=== PATIENT | female | born 1950 | race Caucasian/White ===

== ENCOUNTER 2021-06-10 12:23 | Emergency (ER) | payer MEDICARE, OTHER ==
[2021-06-10] MEDS ORDERED: KEFLEX500 MG PO (12:52)
[2021-06-10] MEDS ORDERED: STROMECTOL3 MG PO (12:52)
[2021-06-10] MEDS ORDERED: NO HOME MEDS (12:54)
[2021-06-10 13:23] VITALS: BP 125/61
== END 2021-06-10 13:23 | disposition home or self-care (01) ==
LOC: ED 12:23
DX: B86 Scabies (principal); L01.00 Impetigo, unspecified; F17.210 Nicotine dependence, cigarettes, uncomplicated; Z59.00 Homelessness unspecified

== ENCOUNTER 2021-08-10 03:16 | Emergency (ER) | payer OTHER, MEDICARE ==
[~2021-08-10 03:16] MED LIST: KEFLEX500 MG PO; NO HOME MEDS; STROMECTOL3 MG PO
== END 2021-08-10 07:00 | disposition home or self-care (01) | DRG 563 ==
LOC: ED 03:40
DX: S39.012A Strain of muscle, fascia and tendon of lower back, initial encounter (principal); S29.012A Strain of muscle and tendon of back wall of thorax, initial encounter; F17.200 Nicotine dependence, unspecified, uncomplicated; V89.2XXA Person injured in unspecified motor-vehicle accident, traffic, initial encounter

== ENCOUNTER 2021-08-19 21:23 | Emergency (ER) | payer MEDICARE ==
[~2021-08-19] VITALS: Ht 162.6 cm; Wt 65.0 kg
[2021-08-19 22:13] LABS: HEMATOCRIT 43.6 % (37.0-47.0); HEMOGLOBIN 14.8 g/dl (12.0-16.0); IMMATURE GRANULOCYTES 0.2 % (0.0-5.0); MEAN CELL VOLUME 94.6 fL CALC (80.0-100.0); MEAN CORPUSCULAR HGB 32.1 pG CALC (26.0-32.0); MEAN CORPUSCULAR HGB CONC 33.9 g/dL CAL (32.0-36.0); NEUT# 5.58 thou/uL (2.00-7.15); RED BLOOD COUNT 4.61 mill/uL (4.20-5.60)
[2021-08-19 22:32] LABS: ALBUMIN 3.6 g/dL (3.2-5.0); ALKALINE PHOSPHATASE 122 u/l (38-126); ANION GAP 9 (6-22 (CALC)); BILIRUBIN, TOTAL 0.4 mg/dL (0.0-1.4); BUN 14 mg/dL (8-23); BUN/CREATININE RATIO 14 (12-20 (CALC)); CARBON DIOXIDE 29 mmol/l (22-30); CHLORIDE 105 mmol/l (95-108); ETHYL ALCOHOL 0 mg/dl (0-30); GFR 55 ML/MIN (>=60 (CALC)); GFR FOR AFR.AMER. > 60 ML/MIN (>=60 (CALC)); MAGNESIUM 1.8 mg/dL (1.6-2.3); POTASSIUM 3.6 mmol/l (3.5-5.1); SGOT/AST 18 u/l (9-36); SODIUM 139 mmol/l (137-146); TOTAL PROTEIN 6.9 g/dL (6.3-8.2)
[2021-08-20 02:14] LABS: URINE BILIRUBIN - DIPSTICK NEGATIVE (NEGATIVE); URINE BLOOD DIPSTICK SMALL (NEGATIVE); URINE COLOR YELLOW; URINE GLUCOSE - DIPSTICK NEGATIVE (NEGATIVE); URINE KETONE NEGATIVE (NEGATIVE); URINE NITRITE - DIPSTICK POSITIVE (Negative); URINE PH 5.5 (4.5-8.0); URINE PROTEIN - DIPSTICK 30 mg/dL (NEG-TRACE); URINE SPECIFIC GRAVITY 1.025; URINE UROBILINOGEN - DIPSTICK 0.2 E.U./dL (0.2)
[2021-08-20 02:15] LABS: URINE BACTERIA FEW hpf; URINE LEUK ESTERASE MODERATE (NEGATIVE); URINE RBC 25-50 RBC/hpf (0-5); URINE SQUAMOUS EPITHELIAL CELL FEW EPI/hpf (0-FEW); URINE WBC 50-100 WBC/hpf (0-5)
[2021-08-20] MEDS ORDERED: BACTRIM DS1 TAB PO (02:25)
[2021-08-20 04:00] VITALS: BP 118/70
== END 2021-08-20 04:00 ==
LOC: ED 21:23
PROVIDERS: Family Medicine
DX: R45.851 Suicidal ideations (principal); F31.9 Bipolar disorder, unspecified; T43.506A Underdosing of unspecified antipsychotics and neuroleptics, initial encounter; F17.200 Nicotine dependence, unspecified, uncomplicated; Z59.6 Low income; Z59.00 Homelessness unspecified; Z91.128 Patient's intentional underdosing of medication regimen for other reason; Z20.822 Contact with and (suspected) exposure to COVID-19